=== PATIENT | male | born 1950 | race African-American/Black ===

== ENCOUNTER 2017-03-13 19:24 | Emergency (ER) | payer BC, MEDICAID ==
[~2017-03-13] VITALS: Ht 180.3 cm; Wt 114.0 kg
[~2017-03-13 19:24] MED LIST: no home meds
[2017-03-14 02:28] VITALS: BP 143/80
== END 2017-03-14 02:36 | disposition home or self-care (01) ==
LOC: ER 19:24
DX: I10 Essential (primary) hypertension (principal); F32.9 Major depressive disorder, single episode, unspecified
CPT/HCPCS: 99283

== ENCOUNTER 2018-03-15 23:00 | Emergency (ER) | payer MEDICARE, MEDICAID ==
[~2018-03-15] VITALS: Ht 175.3 cm; Wt 91.0 kg
[2018-03-16 07:14] VITALS: BP 126/72
== END 2018-03-16 07:16 | disposition home or self-care (01) ==
LOC: ER 23:00
DX: M54.40 Lumbago with sciatica, unspecified side (principal); I10 Essential (primary) hypertension; F32.9 Major depressive disorder, single episode, unspecified
CPT/HCPCS: 99283

== ENCOUNTER 2018-04-04 09:11 | Emergency (ER) | payer MEDICARE, MEDICAID ==
[~2018-04-04] VITALS: Ht 175.3 cm; Wt 87.0 kg
[2018-04-04] MEDS ORDERED: ACETAMINOPHEN WITH CODEINE 300/30MG TABLET PO ONE (09:30)
[2018-04-04 09:47] VITALS: BP 140/86
== END 2018-04-04 12:07 | disposition home or self-care (01) ==
LOC: ER 09:11
DX: S09.8XXA Other specified injuries of head, initial encounter (principal); S63.696A Other sprain of right little finger, initial encounter; S70.02XA Contusion of left hip, initial encounter; S60.222A Contusion of left hand, initial encounter; I10 Essential (primary) hypertension; F32.9 Major depressive disorder, single episode, unspecified; W10.8XXA Fall (on) (from) other stairs and steps, initial encounter; Y93.89 Activity, other specified; Y92.488 Other paved roadways as the place of occurrence of the external cause
CPT/HCPCS: 29130; 70450; 73130; 73140; 73502; 99284